=== PATIENT | female | born 1965 | race Caucasian/White ===

== ENCOUNTER 2017-05-21 09:35 | Emergency (ER) | payer OTHER ==
[~2017-05-21] VITALS: Ht 160 cm; Wt 56.7 kg
[~2017-05-21 09:35] MED LIST: DILAUDID2 MG PO; MULTIVITAMIN1 TAB PO; PERCOCET 325 MG1 TA2 PO; VALIUM5 M1 PO; ZOFRAN ODT4 MG SL
--- NOTE | 2017-05-21 10:05 | ED UPPER/LOWER EXTREMITY COMPL ---
See Addendum History of Present Illness General Chief Complaint: Laceration Procedure Stated Complaint: L THUMB LAC Source: patient Exam Limitations: no limitations Vital Signs & Intake/Output Vital Signs & Intake/Output Vital Signs Date Time Temp Pulse Resp B/P B/P Pulse O2 O2 Flow FiO2 Mean Ox Delivery Rate 05/21 1058 99.0 88 20 130/80 98 Room Air 05/21 0945 99.9 86 18 137/81 99 Room Air Room Air Allergies Coded Allergies: NO KNOWN ALLERGIES (04/22/15) Reconcile Medications Diazepam (Valium) 5 MG TAB 1 TAB PO Q6-PRN PRN muscle spasms HYDROMORPHONE HCL (Dilaudid) 2 MG TAB 1 TAB PO Q4 HRS NEEDED PRN pain Multivitamin (Multiple Vitamins) 1 TAB TAB 1 TAB PO DAILY SUPPLEMENT ( Reported) Ondansetron (Zofran Odt) 4 MG ODT 1 TAB SL Q8 PRN NAUSEA TAKE DIRECTED FOR NAUSEA Triage Note: PT TO ED S/P CUT RIGHT THUMB WITH KNIFE THIS AM. LAST TETANUS: UNKNOWN Triage Nurses Notes Reviewed? yes Onset: Abrupt Duration: constant Timing: single episode today Severity: moderate Severity Numbers: 5 HPI: Patient is a 51-year-old female who presents emergency room stating that she accidentally cut the distal aspect of her left right first digit thumb with a knife oh cutting vesicles earlier today. Tetanus is unknown. Patient is right arm dominant. Bleeding was not controlled prior to arrival. (Dillan Bright) Past History Travel History Traveled to [place] past 21 day No Medical History Any Pertinent Medical History? 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 No (Dillan Bright) Review of Systems Review of Systems Constitutional: Reports: no symptoms. EENTM: Reports: no symptoms. Respiratory: Reports: no symptoms. Cardiovascular: Reports: no symptoms. Gastrointestinal/Abdominal: Reports: no symptoms. Genitourinary: Reports: no symptoms. Musculoskeletal: Reports: see HPI. Skin: Reports: see HPI. Neurological/Psychological: Reports: no symptoms. Hematologic/Endocrine: Reports: see HPI, bleeding. Immunological: Reports: no symptoms. All Other Systems: Reviewed and Negative (Dillan Bright) Physical Exam Physical Exam General Appearance: no apparent distress, alert, comfortable Head: atraumatic Eyes: Bilateral: normal appearance. Ears, Nose, Throat: hearing grossly normal Neck: normal inspection Cardiovascular/Respiratory: no respiratory distress Peripheral Pulses: 2+ radial (L) Neurologic/Tendon: normal sensation, normal motor functions, normal tendon functions, responds to pain, no evidence tendon injury Diagram Hands Back 1) Noted 1 cm clean linear superficial laceration with distal nail avulsion Full active range of motion with flexion and extension no tendon deficit no exposed bone Dermatomes intact (Dillan Bright) Progress Differential Diagnosis: arterial insufficiency, compartment syndrome, contusion, dislocation, DVT, fracture, gout, septic arthritis, sprain, tendon injury Plan of Care: Current Medications Sig/Dotty Start time Last Medication Dose Stop Time Status Admin Lidocaine 20 ML ONCE ONE 05/21 1015 AC (Lidocaine 1%) 05/21 1016 Tetanus/Diphtheria 0.5 ML ONCE ONE 05/21 1015 AC Toxoids Adsorbed 05/21 1016 (Decavac) No concerns of fracture or tendon deficits on exam. Patient was offered pain medications and declines. Tetanus was updated. Due to the proximal nail involvement that non-absorbable sutures were placed into the nail, (#2) And #2 NOT INTO THE NAIL Margins were revised with suture placement patient tolerated well bacitracin and bandage was applied (Dillan Bright) Departure Departure Disposition: HOME OR SELF CARE Condition: Stable Clinical Impression Primary Impression: Laceration of thumb, left Referrals: Marsha ALBERT,Soniya Souza (PCP/Family) Additional Instructions: As discussed if you note signs infection redness, pain, swelling, discharge return to emergency room, keep area dry and clean as you can. Apply bacitracin with the bandage provided to YOU IN the emergency room for the following 4 days and THEN leave the area open to improve healing. The sutures that had been placed will fall off on their own Departure Forms: Customer Survey General Discharge Information (Dillan Bright) PA/[employer] Co-Sign Statement Statement: ED Attending supervision documentation- [] I saw and evaluated the patient. I have also reviewed all the pertinent lab results and diagnostic results. I agree with the findings and the plan of care as documented in the PA's/[employer]'s documentation. [X] I have reviewed the ED Record and agree with the PA's/[employer]'s documentation. [] Additions or exceptions (if any) to the PAs/[employer]'s note and plan are summarized below: [] (Inder PARK,Lj Good) Procedures Laceration/Wound Repair Laceration/Wound Repair: Wound Location: upper extremity (FIRST DIGIT LEFT THUMB) Wound's Depth, Shape: flap, superficial Wound Length (cm): 1 Wound Explored: clean, no foreign body removed, irrigated extensively Irrigated w/ Saline (ccs): 360 Betadine Prep? Yes Anesthesia: 1% lidocaine Volume Anesthetic (ccs): 4 Wound Repaired With: sutures Suture Size/Type: 5:0 Number of Sutures: 4 (Dillan Bright)
[2017-05-21 10:58] VITALS: BP 130/80
== END 2017-05-21 10:58 ==
LOC: ERH 09:35
DX: S61.012A Laceration without foreign body of left thumb without damage to nail, initial encounter (principal); W26.0XXA Contact with knife, initial encounter; Y93.G1 Activity, food preparation and clean up; Y92.9 Unspecified place or not applicable
CPT/HCPCS: 90471; 90714